=== PATIENT | female | born 1990 | race Caucasian/White ===

== ENCOUNTER → 2022-12-13 | Outpatient (CLI) | payer OTHER ==
--- NOTE | 2022-12-13 09:33 | US ---
EXAMINATION TYPE: US abdomen complete DATE OF EXAM: 12/13/2022 COMPARISON: NONE CLINICAL INDICATION: Female, 32 years old with history of R10.11 RIGHT UPPER QUADRANT PAIN, R14.0 ABD OMINAL DISTENTION; Intermittent abdomen pain x couple years TECHNIQUE: Multiple sonographic images of the abdomen are obtained. FINDINGS: EXAM MEASUREMENTS: Liver Length: 13.8 cm Gallbladder Wall: 0.1 cm CBD: 0.4 cm Spleen: 10.4 cm Right Kidney: 9.7 x 3.9 x 5.2 cm Left Kidney: 9.9 x 4.7 x 4.4 cm Pancreas: wnl Liver: wnl Gallbladder: wnl Evidence for sonographic Zapien's sign: no CBD: wnl Spleen: wnl Right Kidney: visualized portions wnl, inferior pole limited by overlying bowel gas Left Kidney: wnl Upper IVC: wnl Abd Aorta: wnl The liver is homogenous. The intrahepatic portion of the IVC and proximal abdominal aorta are within normal limits. There is no evidence of cholelithiasis. Common bile duct is unremarkable. The visu alized portions of the pancreas are homogenous. The spleen is unremarkable. Kidneys are symmetric a nd free of hydronephrosis. No renal lesions are seen. IMPRESSION: No discrete abnormality seen.
--- NOTE | 2022-12-13 12:34 | FL ---
EXAMINATION TYPE: FL UGI DATE OF EXAM: 12/13/2022 10:10 AM COMPARISON: NONE CLINICAL HISTORY: Difficulty in swallowing. A total of 101 seconds of fluoroscopic time was utilized during procedure and 17 images obtained.[id number] .[id number] DAP Preliminary view of the abdomen reveals a normal bowel gas pattern. Upper GI examination was performed according to the air contrast technique. Barium and effervescent crystal was swallowed without difficulty or delay. Esophageal peristalsis and motility are within no rmal limits. There is no evidence for esophagitis, intraluminal mass, hiatal hernia. Mild gastroesop hageal reflux noted during the course of the study. The stomach has a normal appearance in terms of i ts size, shape and location. No gastric filling defects or ulcer craters are seen. The duodenal bul b and sweep are also free of intraluminal lesion or ulcer crater. IMPRESSION: Mild gastroesophageal reflux without evidence for esophagitis.
== END | disposition home or self-care (01) ==
LOC: RADUSWWP 08:47
PROVIDERS: ATTEND Family Medicine
DX: K21.9 Gastro-esophageal reflux disease without esophagitis (principal); R13.10 Dysphagia, unspecified; R14.0 Abdominal distension (gaseous); R10.11 Right upper quadrant pain
CPT/HCPCS: 74240; 76700